=== PATIENT | female | born 1955 | race Caucasian/White ===

== ENCOUNTER 2017-02-15 08:15 | Outpatient (CLI) ==
--- NOTE | 2017-02-15 08:59 | US ---
EXAM: Thyroid ultrasound HISTORY: Abnormal thyroid laboratory values. COMPARISON: None TECHNIQUE: Sonographic evaluation of the thyroid was performed with limited doppler. FINDINGS: The right thyroid measures 2.7 x 1.1 x 0.8 cm. There is normal echogenicity and color Doppler flow. There is a complex hypoechoic nodule with an internal calcification measuring 1.1 5.5 x 0.7 cm with no internal color Doppler flow. There is an additional hypoechoic complex nodule measuring 0.4 x 0.2 x 0.3 cm. The isthmus measures 0.4 cm in thickness. The left thyroid measures 2.3 x 0.7 x 0.7 cm. There is normal echogenicity and color Doppler flow. There is no cyst or nodule. IMPRESSION: Complex nodules in the right thyroid with the largest measuring 1.1 x 0.5 x 0.7 cm. Follow-up ultras ound is 6 months is recommended versus further evaluation with nuclear medicine thyroid study.
== END 2017-02-15 08:16 | disposition home or self-care (01) ==
LOC: RAD 08:15
PROVIDERS: ATTEND Family Medicine
DX: R89.9 Unspecified abnormal finding in specimens from other organs, systems and tissues (principal)

== ENCOUNTER 2017-06-30 09:10 | Outpatient (CLI) | END 2017-06-30 09:11 | disposition home or self-care (01) | LOC: LAB 09:10 | PROVIDERS: ATTEND Internal Medicine Endocrinology, Diabetes & Metabolism | DX: R53.83 Other fatigue (principal); E03.9 Hypothyroidism, unspecified; E04.1 Nontoxic single thyroid nodule | CPT/HCPCS: 36415; 82024 ==

== ENCOUNTER 2018-06-24 10:52 | Outpatient (CLI) | END 2018-06-24 10:53 | disposition home or self-care (01) | LOC: LAB 10:52 | PROVIDERS: ATTEND Internal Medicine Endocrinology, Diabetes & Metabolism | DX: R53.83 Other fatigue (principal); E03.9 Hypothyroidism, unspecified; E04.1 Nontoxic single thyroid nodule | CPT/HCPCS: 36415; 80053; 84439; 84443 ==

== ENCOUNTER 2018-11-07 07:05 | Day surgery (SDC) ==
[2018-11-07 07:24] VITALS: TEMP 98
[2018-11-07] MEDS ORDERED: LIDOCAINE 1% 20 ML MDV ID STA (07:27)
[2018-11-07] MEDS ORDERED: LIDOCAINE 1% 20 ML MDV ID ONE (07:28)
[2018-11-07] MEDS ORDERED: DIPRIVAN 20 ML VIAL IVP ONE (08:35)
[2018-11-07 13:32] VITALS: BP 136/77
--- NOTE | 2018-11-08 11:07 | OP ---
PROCEDURE: COLONOSCOPY TO CECUM. ENDOSCOPIST: Hao BARAHONA M.D. INDICATION: HISTORY OF POLYPS INSTRUMENT: [id number]. MEDICATION: PER ANESTHESIA. PROCEDURE: The patient was positioned for colonoscopy. The digital rectal exam was negative. The colonoscope was inserted through the anus and advanced to the cecum. The cecum was identified using the ileocecal valve and the appendiceal orifice as landmarks. The scope was slowly withdrawn through an adequately prepped colon. The exam was normal throughout. Retroflex exam notable for small hemorrhoids. No other abnormalities were seen. Withdraw time 9 minutes and 6 seconds. [place] Bowel Prep Score equals 9. PLAN: 1. Repeat exam in 5 years CC: Dr. Brittny TURNER
== END 2018-11-07 09:40 | disposition home or self-care (01) ==
LOC: SURG 07:05
PROVIDERS: ATTEND Internal Medicine Gastroenterology
DX: Z86.010 Personal history of colon polyps (principal)